=== PATIENT | female | born 1960 | race Caucasian/White ===

== ENCOUNTER 2019-10-19 02:56 | Inpatient (IN) | payer BC, OTHER ==
[2019-10-19 03:15] LABS: #Lymphocytes 1.2 thou/uL (1.20-3.40); #Monocytes 0.5 thou/uL (0.11-0.59); #Neutrophils 7.9 thou/uL (1.40-6.50); %Basophils 0.4 % (0.0-1.0); %Eosinophils 0.3 % (0.0-10.0); %Lymphocytes 12.3 % (21.0-51.0); %Monocytes 5.1 % (0.0-10.0); %Neutrophils 81.9 % (42.0-75.0); Hemoglobin 15.7 g/dL (12.0-16.0); Mean Corpuscular HGB CONC 35.2 g/dL (32.0-36.0); Mean Corpuscular Volume 93.9 fL (78.0-98.0); Mean Platelet Volume 8.4 fL (7.4-10.4); Platelet Count 275 thou/uL (130-400); RBC Distribution Width 11.2 % (11.5-14.5); Red Blood Cell (RBC) Count 4.76 mill/uL (4.20-5.40); White Blood Cell (WBC) Count 9.6 thou/uL (4.8-10.8)
[2019-10-19 03:25] LABS: INR-International Normal Ratio 0.9; Prothrombin Time 11.8 sec (12.0-14.7)
[2019-10-19 03:26] LABS: PTT 28.1 sec (22.9-36.1)
[2019-10-19 03:54] LABS: ALT (SGPT) 16 U/L (8-55); AST (SGOT) 28 U/L (5-34); Acetaminophen Less than 6.0 mcg/mL (10.0-30.0); Albumin 4.2 g/dL (3.4-4.8); Alcohol 17 mg/dL (Less than 10); Alkaline Phosphatase 106 U/L (40-110); Anion Gap 18 mmol/L (10-20); BUN (Urea Nitrogen) 10 mg/dL (9.8-20.1); Bilirubin, Total 0.4 mg/dL (0.2-1.2); CK (CPK) 123 U/L (29-168); Calc. Creatinine Clearance 0 mL/min (70-130); Calcium 9.3 mg/dL (7.8-10.44); Carbon Dioxide 20 mmol/L (23-31); Chloride 100 mmol/L (98-107); Estimated GFR-MDRD Greater than 90; Globulin 3.8 g/dL (2.4-3.5); Glucose 153 mg/dL (80-115); Potassium 3.9 mmol/L (3.5-5.1); Salicylate Less than 8.0 mg/dL (15.0-30.0); Sodium 134 mmol/L (136-145)
[2019-10-19] MEDS ORDERED: Ondansetron PF 4 MG/2 ML Vial IVP PRN (04:36)
[2019-10-19] MEDS ORDERED: Acetaminophen 325 MG TAB PO PRN (04:36)
[2019-10-19] MEDS ORDERED: Milk Of Magnesia 30 ML UDCUP PO PRN (04:36)
[2019-10-19] MEDS ORDERED: Docusate 100 MG CAP PO PRN (04:36)
[2019-10-19] MEDS ORDERED: Sodium Chloride 0.9% 1,000 ML IV SCH (04:45)
--- NOTE | 2019-10-19 06:40 | CON ---
DATE OF CONSULTATION: 10/19/2019 CHIEF COMPLAINT: Right-sided weakness and slurred speech. HISTORY OF PRESENT ILLNESS: Ms. Schmitz is a 59-year-old female, who states she was watching TV and had few beers when she fell asleep, then woke up on the floor. Says she was unable to move her right side. She crawled to her bedroom, got dressed, called her parents and then EMS. Brain CT was acquired in the emergency department indicating an acute intraparenchymal hemorrhage within the left thalamus. REVIEW OF SYSTEMS: CONSTITUTIONAL: Denies fever or chills. ENT: Denies change in hearing. Reports slight right vision changes. CARDIAC: Denies chest pain, shortness of breath, or diaphoresis. PULMONARY: Denies shortness of breath, cough, or hemoptysis. GI: Denies abdominal pain, nausea, vomiting, diarrhea, or change in stool formation and consistency. : Denies trouble with urination, frequency of urination, or bloody urine. SKIN: Denies skin rash, bruising, bleeding, or skin masses. MUSCULOSKELETAL: As per history of present illness. NEUROLOGICAL: As per history of present illness. PSYCHOLOGICAL: Denies anxiety, depression, or behavioral changes. MEDICATIONS: 1. Venlafaxine 150 mg. 2. Amlodipine 5 mg. 3. Metoprolol 25 mg. 4. Olmesartan/hydrochlorothiazide 40 mg/25 mg. ALLERGIES: LISINOPRIL. SURGICAL HISTORY: Not obtained. HOSPITALIZATION: Not obtained. FAMILY HISTORY: Father alive, diagnosed with none. Mother alive, diagnosed with TIA. SOCIAL HISTORY: Nonsmoker. Drinks 2 to 3 beers daily. Denies illicit drugs. PHYSICAL EXAMINATION: VITAL SIGNS: BP 124/64, pulse 88, temperature 97.5, and respiratory rate 18. HEENT: Pupils are equal. Extraocular movements are intact. NECK: Soft, supple. No masses are noted. Range of motion is intact and nonpainful. NEUROLOGICAL: Awake, alert, and oriented x3. Memory, attention, and fund of knowledge are normal. Cranial nerves are grossly intact. There is a slight right hemianopia and right facial palsy. Motor: Unable to hold right arm against gravity. Right leg, some effort against gravity. Sensory; mild sensory loss in the right leg with decreased feeling on the affected side. Mild aphasia. She is able to comprehend and make conversation without much difficulty. Slight dysarthria. Most words are understandable. LABORATORY DATA: White blood cells 9.6 and platelet count 275. Prothrombin time 11.8, INR 0.9, and PTT 28.1. Sodium 134. IMAGING DATA: Brain CT; acute intraparenchymal hemorrhage within the left thalamus. PLAN: Repeat CT tomorrow morning. If scan shows improvement or no change, we will transfer care to Medicine Service. Supportive care. No intracranial surgery at this time. We will have her follow up in 2 to 3 weeks in our clinic and repeat the scan prior to that visit. Job ID: [id number] MTDD
--- NOTE | 2019-10-19 06:57 | PDOC.EVN ---
Event Note - Event Note Event Note: [id number] Consult
--- NOTE | 2019-10-19 07:01 | PRG ---
DATE OF SERVICE: 10/19/2019 I personally interviewed and examined the patient, agreed with documentation of Real Stout PA-C, dated 10/19/2019. Briefly, Ximena Schmitz is a very pleasant 59-year-old woman, who went to bed last night feeling well. She woke on the floor this morning and had difficulty moving her right side. She came to the emergency department, where CT examination of the brain revealed a thalamic hemorrhage in the left hemisphere without significant mass effect and no extension into the ventricular system. She is admitted to the [facility] unit. Her blood pressure is 150/92 as I examined her. She is awake and alert. Some of her speech is confused, but she reorients quickly and has a reasonably straightforward conversation. Cranial nerves appear intact. She has decreased sensation on the right side of her body. She has some pronator drift on the right. Her CT shows the aforementioned findings. Size of the hemorrhage is small. It is unlikely Ms. Schmitz will warrant any neurosurgical intervention. We will keep her blood pressure less than 140. We will re-scan her at 4:00 p.m. about 12 hours after her first scan. If those two scans look the same, we will not scan any further until 2 to 3 weeks from now. If she remains neurologically stable until tomorrow morning, she will be transferred to the Internal Medicine team per protocol. She will likely do well with the rehab. Job ID: [id number]
--- NOTE | 2019-10-19 07:34 | CT ---
PRELIMINARY REPORT/[facility]/EMERGENCY AFTER HOURS PROCEDURE: Receipt of this report by the clinical staff was confirmed with Marilu Sykes MD by Rufina Hayden on Oct 19, 2019 03:21:00 CDT. Addendum electronically signed by Rufina Hayden on October 19, 2019 3:22:26 AM CDT EXAM: CT Head Without Intravenous Contrast. CLINICAL HISTORY: *LEVEL 1 STROKE ALERT* F59, LSN 2000, PATIENT WOKE UP ON FLOOR AROUND 0130 UNABLE TO MOVE, RIGHT SIDE D WEAKNESS. +ETOH. TECHNIQUE: Axial computed tomography images of the head/brain without intravenous contrast. COMPARISON: None provided. FINDINGS: BRAIN: There is acute intraparenchymal hemorrhage within the left thalamus measuring 1.7 x 1.5 x 2.3 cm. No significant mass-effect. No CT evidence for acute territorial infarct. No midline shift or extra-ax ial collection. VENTRICLES: No hydrocephalus. ORBITS: The orbits are unremarkable. SINUSES AND MASTOIDS: The paranasal sinuses and mastoid air cells are clear. SOFT TISSUES: No significant facial or scalp soft tissue swelling evident. No radiopaque foreign body is seen. BONES: No acute skull fracture. IMPRESSION: Acute intraparenchymal hemorrhage within the left thalamus. No significant mass-effect, midline shif t or herniation. Short interval follow-up is recommended for stability. ELECTRONICALLY SIGNED BY: Jose Wilkerson M.D. Oct 19, 2019 3:20:06 AM CDT FINAL REPORT EMERGENCY AFTER HOURS CT BRAIN WITHOUT CONTRAST: FINDINGS/IMPRESSION: I agree with the findings and impression given in the preliminary report per [facility] physici an. There is a parenchymal hemorrhage involving the left thalamus. POS: ALEXIA
--- NOTE | 2019-10-19 08:01 | RAD ---
EXAM: CHEST ONE VIEW HISTORY: Right-sided weakness. COMPARISON: 05/18/2011 FINDINGS: The cardiac silhouette and pulmonary vasculature are within normal limits. The lungs are clear. Degen erative changes are seen in the spine. No significant interval change from prior study. IMPRESSION: No acute cardiopulmonary process.
--- NOTE | 2019-10-19 08:28 | CON ---
DATE OF CONSULTATION: 10/19/2019 CHIEF COMPLAINT: Right-sided weakness. REQUESTING PHYSICIAN: Neurosurgery. REASON FOR CONSULTATION: Medical management. HISTORY OF PRESENT ILLNESS: Ms. Schmitz is a 59-year-old female with past medical history of hypertension, presented to the emergency room with right-sided weakness and slurred speech. A brain CT done in the emergency room showed an acute intraparenchymal hemorrhage within the left thalamus. The patient is on venlafaxine, amlodipine, metoprolol, and olmesartan/hydrochlorothiazide at home. The patient is being admitted to the intensive care unit for further management. PAST MEDICAL HISTORY: Hypertension. PAST SURGICAL HISTORY: Reviewed and not pertinent. ALLERGIES: LISINOPRIL. FAMILY HISTORY: Mother has a history of TIA. SOCIAL HISTORY: Nonsmoker. Drinks 2 beers a day. Denies illicit drug use. HOME MEDICATIONS: Please see home medication reconciliation form for updated medications. REVIEW OF SYSTEMS: Review of 14 systems negative except what is mentioned in History of Present Illness. PHYSICAL EXAMINATION: GENERAL: The patient is awake, alert, not in acute distress. VITAL SIGNS: Blood pressure 120/60, pulse is 88, respiratory rate is 18, and temperature is 97.5. HEAD AND NECK: Normocephalic. NECK: Supple. No JVD. CHEST: Fair bilateral air entry. HEART: S1, S2. Regular. ABDOMEN: Soft, nontender. Bowel sounds present. NEUROLOGIC: Awake, alert, and oriented x3. There is weakness in the right upper extremity and right lower extremity. Sensation was decreased on the right side, mild aphasia. LABORATORY DATA: The patient has WBC count of 9.6 and platelets 275. INR is 0.9. Sodium 134. Brain CT showed acute intraparenchymal hemorrhage within the left thalamus. ASSESSMENT: 1. Acute intracranial hemorrhage. 2. Hypertension. PLAN: 1. Admit to ICU. 2. Monitor blood pressure. 3. Reconcile home medications. 4. Surgical management as per neurosurgeon. 5. DVT prophylaxis as appropriate. Thank you for consulting us. We will follow the patient with you as needed. Job ID: [id number]
[2019-10-19] MEDS ORDERED: Potassium Chloride 20 MEQ TAB PO SCH (08:45)
--- NOTE | 2019-10-19 09:47 | RAD ---
XR Hip Rt 2-3 View HISTORY: Fall, right hip pain FINDINGS: No fracture or dislocation is identified.
--- NOTE | 2019-10-19 09:48 | RAD ---
XR Hip Lt 2-3 View HISTORY: Fall, left hip pain FINDINGS: No fracture or dislocation is identified.
--- NOTE | 2019-10-19 10:14 | ULT ---
Carotid duplex sonogram HISTORY: CVA. Vascular disease. FINDINGS: Right: Mild plaque. Color and spectral Doppler evaluation, peak systolic velocity of 52 cm/s, and IC to CC ratio 0.6 suggest no hemodynamically significant stenosis within the extracranial right ICA. Antegrade flow within the vertebral artery. Left: Minimal plaque. Color and spectral Doppler evaluation, peak systolic velocity of 63 cm/s, and I C to CC ratio of 0.8 suggest no hemodynamically significant stenosis within the extracranial left ICA. Antegrade flow within the vertebral artery. IMPRESSION : Mild atherosclerosis. No sonographic evidence of significant extracranial ICA stenosis.
[2019-10-19] MEDS: levETIRAcetam 500 MG TAB PO SCH ×2 (11:02→20:35)
[2019-10-19] MEDS: Amlodipine 5 MG TAB PO SCH (11:02)
--- NOTE | 2019-10-19 12:16 | MRI ---
MRI BRAIN NONCONTRAST: DATE: 10/19/2019 HISTORY: 59-year-old female with "right arm and leg numbness" COMPARISON: No prior brain MRI. CT of 10/19/2019 FINDINGS: There is an approximately 2 x 1.5 cm intra-axial hematoma in the left thalamus surrounded by a thin [place] of vasogenic edema. The edema extends into the left side of the midbrain. The surrounding vasogenic edema is hyperintense on DWI. The hematoma has moderate T1 shortening (mildly hyperintense relative to brain parenchyma on T1 WI) and mixed T2 prolongation and intermediate T2 (hyperintense and isointense relative to brain parenchyma on T2 WI). The signal characteristics are consistent with a mixture of intracellular and extracellular methemoglobin. Strong magnetic susceptibility artifact on gradient echo sequence. The hematoma causes mild local mass effect. It does not obstruct the third ventricle. The ventricles are normal in size and configuration. Elsewhere, there are mild chronic ischemic white matter changes of the cerebrum, and moderate to thelma re chronic ischemic white matter changes of the sharon. No midline shift or extra-axial fluid collection. IMPRESSION: 1) acute intra-axial hematoma of the left thalamus, with surrounding vasogenic edema that extends int o the left midbrain. 2) recommend follow-up MRI of brain with and without contrast in 1 to 3 months to evaluate for underl taylor neoplastic cause. 3) high-grade chronic ischemic white matter changes of the sharon..
[2019-10-19 14:04] LABS: SARS-CoV-2 MS2 Positive; SARS-CoV-2 N Gene Negative; SARS-CoV-2 S Gene Negative; SARS-CoV-2 by NAA Not Detected (NotDetected); SARS-CoV-2 orf1ab Negative
--- NOTE | 2019-10-19 14:25 | PDOC.HOSPP ---
- Subjective Encounter Date: 10/19/19 Encounter Time: 07:00 Subjective: The patient states her right side is still completely numb. She is able to move her right arm more but can't feel anything on her left leg. She states that when she went to bed she woke up and found herself on the floor, doesn't know how she got there. She wasn't able to move and managed to crawl herself to call the ambulance. She lives alone with her dog Patient was hysterically crying this morning because she had a magalie horse on her left leg and states it took few hours before she got any relief and was unable to get any help. - Objective Vital Signs & Weight: Vital Signs (12 hours) Temp Pulse Pulse Pulse BP BP BP 10/19/19 11:02 103 H 146/94 H 10/19/19 11:01 158/87 H 10/19/19 11:00 104 H 102 H 146/94 H 158/87 H 10/19/19 08:00 10/19/19 07:23 98.1 F 10/19/19 05:57 97.5 F L Pulse Ox Pulse Ox Pulse Ox 10/19/19 11:02 10/19/19 11:01 10/19/19 11:00 100 100 10/19/19 08:00 98 10/19/19 07:23 10/19/19 05:57 Weight Weight 209 lb 12.8 oz Most Recent Monitor Data Heart Rate from ECG 104 NIBP 158/87 NIBP BP-Mean 110 Respiration from ECG 17 SpO2 99 Result Diagrams: 10/19/19 03:06 10/19/19 03:06 Additional Labs: Accuchecks 10/19/19 03:09 POC Glucose 150 H Hospitalist ROS - Review of Systems Constitutional: denies: fever, chills - Medication Medications: Active Medications Generic Name Dose Route Start Last Admin Trade Name Freq PRN Reason Stop Dose Admin Acetaminophen 650 mg 10/19/19 04:36 10/19/19 11:02 Tylenol PO 650 mg Q6H PRN Administration Fever > 101 or Headache Amlodipine Besylate 2.5 mg 10/19/19 09:00 10/19/19 11:02 Norvasc PO 2.5 mg DAILY CHRISTIANO Administration Levetiracetam 500 mg 10/19/19 09:00 10/19/19 11:02 Keppra PO 500 mg BID CHRISTIANO Administration - Exam General Appearance: NAD, awake alert Eye: PERRL, anicteric sclera ENT: normocephalic atraumatic, no oropharyngeal lesions Neck: supple, symmetric, no JVD Heart: RRR, no murmur, no gallops, no rubs Respiratory: CTAB, no wheezes, no rales, no ronchi Gastrointestinal: soft, non-tender, non-distended, normal bowel sounds, no palpable masses Extremities: no cyanosis, no clubbing, no edema Skin: normal turgor, no lesions, no rashes Neurological: cranial nerve grossly intact, normal sensation to touch, no focal deficits, no new deficit Musculoskeletal: normal tone, normal strength, no muscle wasting Psychiatric: normal affect, normal behavior, A&O x 3, oriented to person Hosp A/P - Plan CT brain: acute intraparenchymal hemorrhage within left thalamus. MRI Brain: acute intra-axial hematoma of the left thalamus with surrounding vasogenic edema extending into the left midbrain. Follow up MRI brain with and without contrast in 1-3 months. High grade chronic ischemic white matter changes of the sharon Carotid ultrasound: mild atherosclerosis This is a 59 year old female with past medical history of hypertension and depression who presented with right sided numbness, found to have an acute left thalamus hemorrhage Acute left intraparenchymal hemorrhage - noted on CT head. Plan for repeat CT head this afternoon. MRI brain shows left thalamus hemorrhage with edema extending into left midbrain. Carotid shows no atherosclerosis - BP goal around 140, started amlodipine 2.5 mg daily, can increase to 5 mg - patient takes metoprolol and olemsartan/HCTZ at home as well - continue keppra for seizure prophylaxis - can transfer to stroke floor if CT scan stable Hyponatremia - sodium 134, mild, will monitor . I have resumed diet Cramps in legs - ordered magnesium which was 1.9. Will give one dose of 400 mg Depression - continue venlafaxine
[2019-10-19] MEDS ORDERED: Magnesium Oxide 400 MG TAB PO SCH (14:45)
--- NOTE | 2019-10-19 21:41 | CT ---
CT OF BRAIN PERFORMED WITHOUT CONTRAST ENHANCEMENT: 10/19/19 HISTORY: Follow-up of bleed. COMPARISON: Prior examination same day. The left thalamic hemorrhage is stable. No new process demonstrated. IMPRESSION: Stable left thalamic hemorrhage. POS: OFF
[2019-10-19] MEDS ORDERED: Dexamethasone Sod Phosphate 4 MG in Sodium Chloride 0.9% 50 ML IVPB SCH (23:30)
--- NOTE | 2019-10-20 07:19 | PRG ---
DATE OF SERVICE: 10/20/2019 I saw Ms. Schmitz in her room this morning. She has moved out of the intermediate care unit and to the Stroke Unit. For some reason, MRI was done yesterday of the brain. A followup CAT scan has been done this morning as well. I have compared all those images. Ms. Schmitz feels better than she did yesterday, but she is still telling me that sensation on the right side of her body is abnormal and makes her feel as though it is difficult to coordinate the motion on that side. Among the electronically recorded vital signs, the maximum temperature I see is 99.8 degrees Fahrenheit. Blood pressures have been in the 120s to 130s. Other vitals are stable. Ms. Schmitz is wide awake this morning. Her speech is perfectly fluent. She has some right-sided decreased sensation and a small pronator drift on that side. These are stable findings from yesterday. Imaging findings have been reviewed. We carefully compared all the images and there is no change in the size of the thalamic hemorrhage. The MRI scan does not show any acute infarct. There is nothing to suggest any increase in size or increased bleeding when compared to her admission imaging findings. Ms. Schmitz has been stable since her admission. Per our intracerebral hemorrhage protocol, the Internal Medicine Team will take over her primary today. We will arrange followup imaging of the brain in 3 weeks' time. I will call the patient with those results. In 2 to 3 months' time, we may consider an MRI scan as well. (15 minutes). Job ID: [id number] MTDD
[2019-10-20] MEDS: Amlodipine 5 MG TAB PO SCH (08:24)
[2019-10-20] MEDS: Venlafaxine HCl XR 150 MG CAP PO SCH (08:24)
[2019-10-20] MEDS: levETIRAcetam 500 MG TAB PO SCH ×2 (08:24→20:26)
--- NOTE | 2019-10-20 14:21 | PDOC.HOSPP ---
- Subjective Encounter Date: 10/20/19 Encounter Time: 11:30 Subjective: Patient is able to lift her right upper extremity and squeeze. Able to lift her right leg however strength is better in the upper extremity compared to lower extremity. She is still have sensory impairment on the right side. He has a Harkins. Able to work with the physical therapist. Blood pressure is high this morning however repeat blood pressure seems to be improved. She is on Keppra tolerating her regular diet. She had a 3 male so far. And no BM. She is aware that she is passing gas. - Objective Vital Signs & Weight: Vital Signs (12 hours) Temp Pulse Pulse Pulse Resp BP BP 10/20/19 11:13 98.3 F 87 15 10/20/19 10:11 100 101 H 178/93 H 131/81 10/20/19 08:24 97 10/20/19 08:20 10/20/19 07:29 97.8 F 97 18 10/20/19 03:15 98.3 F 84 18 BP Pulse Ox 10/20/19 11:13 135/75 95 10/20/19 10:11 10/20/19 08:24 10/20/19 08:20 97 10/20/19 07:29 136/82 97 10/20/19 03:15 131/67 93 L Weight Weight 208 lb 11.2 oz Most Recent Monitor Data Heart Rate from ECG 86 NIBP 108/59 NIBP BP-Mean 75 Respiration from ECG 15 SpO2 100 I&O: 10/19/19 10/20/19 10/21/19 06:59 06:59 06:59 Intake Total 200 Output Total 2800 Balance -2600 Result Diagrams: 10/19/19 03:06 10/19/19 03:06 Hospitalist ROS - Medication Medications: Active Medications Generic Name Dose Route Start Last Admin Trade Name Freq PRN Reason Stop Dose Admin Acetaminophen 650 mg 10/19/19 04:36 10/19/19 11:02 Tylenol PO 650 mg Q6H PRN Administration Fever > 101 or Headache Amlodipine Besylate 2.5 mg 10/19/19 09:00 10/20/19 08:24 Norvasc PO 2.5 mg DAILY CHRISTIANO Administration Levetiracetam 500 mg 10/19/19 09:00 10/20/19 08:24 Keppra PO 500 mg BID CHRISTIANO Administration Venlafaxine HCl 150 mg 10/20/19 09:00 10/20/19 08:24 Effexor Xr PO 150 mg DAILY CHRISTIANO Administration - Exam General Appearance: NAD, awake alert Eye: PERRL ENT: normocephalic atraumatic Neck: supple Heart: RRR Respiratory: CTAB, normal chest expansion Gastrointestinal: soft, normal bowel sounds Neurological - other findings: Right upper extremity 3 out of 5 in strength lower extremity 2 out of 5. 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 Plan for repeat CT head this afternoon. MRI brain shows left thalamus hemorrhage with edema extending into left midbrain. Carotid shows no atherosclerosis - BP goal around 140, started amlodipine 2.5 mg daily, can increase to 5 mg - patient takes metoprolol and olemsartan/HCTZ at home as well - continue keppra for seizure prophylaxis -May need to discontinue the Keppra in 2 to 3 weeks - They plan to see her in 3 months time may be if she needs earlier appointment. Hyponatremia -No BMP done today will get one and follow the sodium level. History of daily drinking beer -Place [facility] protocol Depression Anxiety - continue venlafaxine Constipation -Arrange scheduled stool softener Continue with physical therapy. Repeat CT head done yesterday on fourth showing left thalamic hemorrhage is stable without any new process
[2019-10-20] MEDS ORDERED: Lorazepam 1 MG TAB PO PRN (14:52)
[2019-10-20] MEDS: Labetalol HCl 100 MG/20 ML VIAL SLOW IVP PRN (16:03)
[2019-10-20] MEDS: Senokot S 8.6-50 MG TAB PO SCH (20:26)
[2019-10-21] MEDS: hydrALAZINE 20 MG/ML VIAL SLOW IVP PRN ×2 (00:20→20:43)
[2019-10-21] MEDS: Venlafaxine HCl XR 150 MG CAP PO SCH (10:14)
[2019-10-21] MEDS: Amlodipine 5 MG TAB PO SCH (10:14)
[2019-10-21] MEDS: Senokot S 8.6-50 MG TAB PO SCH ×2 (10:14→20:43)
[2019-10-21 10:41] LABS: Hemoglobin A1c 4.8 % (4.0-6.0)
[2019-10-21 10:56] LABS: Anion Gap 13 mmol/L (10-20); BUN (Urea Nitrogen) 11 mg/dL (9.8-20.1); Calc. Creatinine Clearance 152 mL/min (70-130); Calcium 8.7 mg/dL (7.8-10.44); Carbon Dioxide 25 mmol/L (23-31); Chloride 103 mmol/L (98-107); Estimated GFR-MDRD Greater than 90; Glucose 104 mg/dL (80-115); Potassium 3.4 mmol/L (3.5-5.1); Sodium 138 mmol/L (136-145)
--- NOTE | 2019-10-21 13:51 | PDOC.HOSPP ---
- Subjective Encounter Date: 10/21/19 Encounter Time: 10:40 Subjective: Patient is sitting in the chair she feels comfortable. She still has the Harkins. Her sensory impairment still exist. But she is able to move her right leg much better than yesterday. - Objective Vital Signs & Weight: Vital Signs (12 hours) Temp Pulse Resp BP BP Pulse Ox 10/21/19 11:59 162/84 H 10/21/19 11:25 98.7 F 78 22 H 162/84 H 96 10/21/19 10:14 89 163/89 H 10/21/19 09:45 95 10/21/19 08:00 98.1 F 89 17 126/89 95 10/21/19 07:11 126/89 10/21/19 04:00 97.5 F L 72 14 130/69 130/69 96 10/21/19 01:50 138/75 Weight Weight 212 lb 3.2 oz Most Recent Monitor Data Heart Rate from ECG 86 NIBP 108/59 NIBP BP-Mean 75 Respiration from ECG 15 SpO2 100 I&O: 10/20/19 10/21/19 10/22/19 06:59 06:59 06:59 Intake Total 200 2080 Output Total 2800 8830 1320 Balance -7587 -7961 -1320 Result Diagrams: 10/19/19 03:06 10/21/19 10:11 Hospitalist ROS - Medication Medications: Active Medications Generic Name Dose Route Start Last Admin Trade Name Freq PRN Reason Stop Dose Admin Acetaminophen 650 mg 10/19/19 04:36 10/19/19 11:02 Tylenol PO 650 mg Q6H PRN Administration Fever > 101 or Headache Amlodipine Besylate 2.5 mg 10/19/19 09:00 10/21/19 10:14 Norvasc PO 2.5 mg DAILY CHRISTIANO Administration Hydralazine HCl 5 mg 10/19/19 04:43 10/21/19 00:20 Apresoline SLOW IVP 5 mg Q4H PRN Administration SBP >140 Labetalol HCl 10 mg 10/19/19 04:36 10/20/19 16:03 Normodyne SLOW IVP 10 mg Q2H PRN Administration SBP > 140 Senna/Docusate Sodium 1 tab 10/20/19 21:00 10/21/19 10:14 Senokot S PO 1 tab BID CHRISTIANO Administration Venlafaxine HCl 150 mg 10/20/19 09:00 10/21/19 10:14 Effexor Xr PO 150 mg DAILY CHRISTIANO Administration - Exam General Appearance: NAD, awake alert Eye: PERRL ENT: normocephalic atraumatic Neck: supple Heart: RRR Respiratory: CTAB, normal chest expansion Gastrointestinal: soft, normal bowel sounds Neurological: cranial nerve grossly intact Neurological - other findings: Right leg strength improved. Sensory impairment on the right side remains Psychiatric: A&O x 3 Hosp A/P - Plan Acute left intraparenchymal hemorrhage - noted on CT head. Plan for repeat CT head this afternoon. MRI brain shows left thalamus hemorrhage with edema extending into left midbrain. Carotid shows no atherosclerosis - BP goal around 140, started amlodipine 2.5 mg daily, can increase to 5 mg - patient takes metoprolol and olemsartan/HCTZ at home as well - continue keppra for seizure prophylaxis -May need to discontinue the Keppra in 2 to 3 weeks - They plan to see her in 3 months time may be if she needs earlier appointment. Hyponatremia -No BMP done today will get one and follow the sodium level. History of daily drinking beer -Place [facility] protocol Depression Anxiety - continue venlafaxine Constipation -Arrange scheduled stool softener Continue with physical therapy. Repeat CT head done yesterday on fourth showing left thalamic hemorrhage is stable without any new process 6th Right octavio-anesthesia She still has ongoing sensory impairment on her right upper and lower extremities. Right hemiparesis -Both upper and lower extremity strength on the right side improved. Continue with ongoing physical therapy. Will discuss about home discharge with home health versus inpatient rehab.
[2019-10-21] MEDS: Labetalol HCl 100 MG/20 ML VIAL SLOW IVP PRN (22:57)
[2019-10-22] MEDS: hydrALAZINE 20 MG/ML VIAL SLOW IVP PRN ×3 (04:49→21:11)
[2019-10-22] MEDS: Senokot S 8.6-50 MG TAB PO SCH ×2 (08:26→20:18)
[2019-10-22] MEDS: Amlodipine 5 MG TAB PO SCH ×2 (08:26→08:27)
[2019-10-22] MEDS: Losartan/Hydrochlorothiazide 100 mg/25 mg Tablet PO SCH (08:27)
[2019-10-22] MEDS: Venlafaxine HCl XR 150 MG CAP PO SCH (08:27)
--- NOTE | 2019-10-22 10:39 | PDOC.HOSPP ---
- Subjective Encounter Date: 10/22/19 Encounter Time: 07:00 Subjective: Patient seen in follow-up for intracranial bleed. She reports right upper extremity numbness and weakness. She denies chest pain, shortness of breath, fevers or chills. - Objective Vital Signs & Weight: Vital Signs (12 hours) Temp Pulse Resp BP BP Pulse Ox 10/22/19 08:27 138/71 10/22/19 08:26 138/71 10/22/19 08:01 138/71 10/22/19 07:23 96 10/22/19 07:19 97.9 F 75 20 138/71 96 10/22/19 05:16 79 139/72 10/22/19 04:49 144/80 H 10/22/19 04:00 98.0 F 80 20 144/80 H 95 10/21/19 23:24 149/79 H 10/21/19 23:19 98.1 F 79 18 149/79 H 94 L 10/21/19 22:57 84 177/79 H Weight Weight 203 lb Most Recent Monitor Data Heart Rate from ECG 86 NIBP 108/59 NIBP BP-Mean 75 Respiration from ECG 15 SpO2 100 I&O: 10/21/19 10/22/19 10/23/19 06:59 06:59 06:59 Intake Total 2080 2125 300 Output Total 4550 1320 Balance -2470 805 300 Result Diagrams: 10/19/19 03:06 10/21/19 10:11 Additional Labs: I reviewed patient's labs and MAR EKG Reviewed by me: Yes (Telemetry-NSR) Hospitalist ROS - Review of Systems Gastrointestinal: denies: nausea, vomiting, abdominal pain, diarrhea, constipation, melena, hematochezia Neurological: reports: weakness, numbness. denies: incoordination, change in speech, confusion, seizures - Medication Medications: Active Medications Generic Name Dose Route Start Last Admin Trade Name Freq PRN Reason Stop Dose Admin Acetaminophen 650 mg 10/19/19 04:36 10/19/19 11:02 Tylenol PO 650 mg Q6H PRN Administration Fever > 101 or Headache Amlodipine Besylate 2.5 mg 10/19/19 09:00 10/22/19 08:26 Norvasc PO 2.5 mg DAILY CHRISTIANO Administration Amlodipine Besylate 5 mg 10/22/19 09:00 10/22/19 08:27 Norvasc PO 5 mg DAILY CH[facility]STIANO Administration HCTZ/Losartan Potassium 1 tab 10/22/19 09:00 10/22/19 08:27 Hyzaar 100/25 PO 1 tab DAILY [facility]STIANO Administration Hydralazine HCl 5 mg 10/19/19 04:43 10/22/19 04:49 Apresoline SLOW IVP 5 mg Q4H PRN Administration SBP >140 Labetalol HCl 10 mg 10/19/19 04:36 10/21/19 22:57 Normodyne SLOW IVP 10 mg Q2H PRN Administration SBP > 140 Metoprolol Succinate 25 mg 10/22/19 09:00 10/22/19 08:27 Toprol Xl PO 25 mg DAILY CH[facility]STIANO Administration Senna/Docusate Sodium 1 tab 10/20/19 21:00 10/22/19 08:26 Senokot S PO Not Given BID CHRISTIANO Sodium Chloride 10 ml 10/19/19 04:36 10/22/19 04:49 Flush - Normal Saline IVF 10 ml PRN PRN Administration Saline Flush Venlafaxine HCl 150 mg 10/20/19 09:00 10/22/19 08:27 Effexor Xr PO 150 mg DAILY CH[facility]STIANO Administration - Exam General - other findings: Obese Eye: anicteric sclera ENT: moist mucosa Neck: supple, symmetric Heart: RRR Respiratory: CTAB Gastrointestinal: soft, non-tender Extremities: no cyanosis Neurological - other findings: Right upper extremity weakness, diminished sensation Psychiatric: normal affect, normal behavior Hosp A/P - Plan Acute left intraparenchymal hemorrhage -Hypertension is controlled -Continue amlodipine, metoprolol and olemsartan/HCTZ -Patient is on Keppra for seizure prophylaxis Hypokalemia -Replace potassium Depression -Mild, stable -continue venlafaxine Hyponatremia -Resolved Disposition: To inpatient rehab. Patient has commercial insurance, needs preauthorization.
[2019-10-22] MEDS ORDERED: Potassium Chloride 20 MEQ TAB PO SCH (11:00)
--- NOTE | 2019-10-22 13:57 | CON ---
DATE OF CONSULTATION: 10/22/2019 REASON FOR CONSULTATION: Tachycardia. HISTORY OF PRESENT ILLNESS: Ms. Schmitz is a very pleasant 59-year-old white female, who comes to the hospital for right-sided weakness and slurred speech. She was at home watching TV, she thinks that she fell asleep and woke up on the floor and was unable to move her right side, eventually got to the phone and was able to call 911. She was brought in and CT was done that showed left thalamus intraparenchymal hemorrhage. No surgery was performed. MRI was done on same date and it showed some vasogenic edema around it with the same hematoma of left thalamus. She is doing better. She is slowly recuperating some of her movement. However, they have stood her up to walk and every time they stand her up, her heart rate goes from the 80s to 90s up to about 180 to 190, almost 200 at times, so Cardiology has been consulted for concern of this being SVT. On my evaluation, Ms. Schmitz denies any chest pain, tightness, pressure. No shortness of breath. She is taking her blood pressure medications at home and tells me that she has stopped checking her blood pressure at home about a year ago, but in the past it had been pretty good. She states that she has been a little more worried about some things at home lately, but nothing terrible. Currently, I am looking at her strips and when she stands up, it looks like she goes into sinus tach and gets better with rest. PAST MEDICAL HISTORY: 1. Hypertension. 2. Anxiety and depression. OUTPATIENT MEDICATIONS: 1. Venlafaxine 150 mg a day. 2. Amlodipine 5 mg a day. 3. Metoprolol 25 mg a day. 4. Olmesartan/hydrochlorothiazide 40/25 mg a day. ALLERGIES: LISINOPRIL GIVES HER COUGH. SURGICAL HISTORY: None. FAMILY HISTORY: Noncontributory. SOCIAL HISTORY: Drinks about 2 to 3 beers every day. No drug use. No tobacco use. REVIEW OF SYSTEMS: A 12-point review of systems was done and was found to be negative other than stated in the history of present illness. PHYSICAL EXAMINATION: VITAL SIGNS: Temperature 97.6, pulse 88, respiratory rate 20, saturating 96% on room air, blood pressure has been anywhere from GENERAL: Awake, alert, oriented x3. No distress. HEENT: Normocephalic and atraumatic. NECK: Supple. LUNGS: Clear. CARDIOVASCULAR: S1 and S2. No S3 or S4. No murmurs. ABDOMEN: Soft. Positive bowel sounds. EXTREMITIES: No edema. SKIN: Warm and dry. LABORATORY DATA: Laboratory work was reviewed. White count was unremarkable. Coags were normal. Chemistry was unremarkable except for a potassium of 3.4, triglyceride of 111, LDL of 108, HDL of 65. Toxicology, plasma alcohol was 17. Acetaminophen and salicylates were negative. COVID-19 serologies were negative. ASSESSMENT: 1. Sinus tachycardia. 2. Left thalamus bleed. PLAN: 1. We will up titrate beta elma to try to control blood pressure and heart rate a little bit better. 2. Looking at the strips, more likely this is sinus tachycardia. Hopefully, this will get better once the bleed starts to get better and edema starts to improve. 3. Continue telemetry monitoring for now. 4. Echocardiogram to be done. Thank you for letting us to participate in the care of your patient. We will follow. Job ID: [id number]
[2019-10-22] MEDS: Labetalol HCl 100 MG/20 ML VIAL SLOW IVP PRN ×2 (15:38→21:56)
[2019-10-23 08:11] LABS: #Basophils 0.1 thou/uL (0.0-0.2); #Eosinphils 0.2 thou/uL (0.0-0.7); #Lymphocytes 1.3 thou/uL (1.20-3.40); #Monocytes 0.5 thou/uL (0.11-0.59); #Neutrophils 5.5 thou/uL (1.40-6.50); %Basophils 0.7 % (0.0-1.0); %Eosinophils 2.4 % (0.0-10.0); %Lymphocytes 17.5 % (21.0-51.0); %Monocytes 6.6 % (0.0-10.0); %Neutrophils 72.9 % (42.0-75.0); Hemoglobin 14.8 g/dL (12.0-16.0); Mean Corpuscular HGB CONC 34.4 g/dL (32.0-36.0); Mean Corpuscular Hemoglobin 33.3 pg (27.0-31.0); Mean Corpuscular Volume 96.7 fL (78.0-98.0); Mean Platelet Volume 8.4 fL (7.4-10.4); Platelet Count 252 thou/uL (130-400); RBC Distribution Width 11.6 % (11.5-14.5); Red Blood Cell (RBC) Count 4.45 mill/uL (4.20-5.40); White Blood Cell (WBC) Count 7.6 thou/uL (4.8-10.8)
[2019-10-23 08:33] LABS: Anion Gap 16 mmol/L (10-20); BUN (Urea Nitrogen) 14 mg/dL (9.8-20.1); Calc. Creatinine Clearance 131 mL/min (70-130); Calcium 9.3 mg/dL (7.8-10.44); Carbon Dioxide 20 mmol/L (23-31); Chloride 103 mmol/L (98-107); Estimated GFR-MDRD Greater than 90; Glucose 109 mg/dL (80-115); Potassium 3.7 mmol/L (3.5-5.1); Sodium 135 mmol/L (136-145)
[2019-10-23] MEDS: Venlafaxine HCl XR 150 MG CAP PO SCH (08:38)
[2019-10-23] MEDS: Losartan/Hydrochlorothiazide 100 mg/25 mg Tablet PO SCH (08:38)
[2019-10-23] MEDS: Amlodipine 5 MG TAB PO SCH (08:39)
[2019-10-23] MEDS: Senokot S 8.6-50 MG TAB PO SCH ×2 (08:41→20:37)
--- NOTE | 2019-10-23 10:20 | PDOC.HOSPP ---
- Subjective Encounter Date: 10/23/19 Encounter Time: 07:00 Subjective: Patient was seen for follow-up regarding intracranial bleed. She reports that the numbness over her right upper extremity is improving. Weakness in the right upper extremity is improving as well. - Objective Vital Signs & Weight: Vital Signs (12 hours) Temp Pulse Resp BP BP Pulse Ox 10/23/19 08:45 131/69 10/23/19 07:30 97.5 F L 80 15 131/69 95 10/23/19 03:34 98 F 82 18 124/69 124/69 95 10/22/19 23:28 97.6 F 83 20 125/80 125/80 93 L Weight Weight 202 lb Most Recent Monitor Data Heart Rate from ECG 86 NIBP 108/59 NIBP BP-Mean 75 Respiration from ECG 15 SpO2 100 I&O: 10/22/19 10/23/19 10/24/19 06:59 06:59 06:59 Intake Total 2125 1100 Output Total 1320 Balance 805 1100 Result Diagrams: 10/23/19 07:37 10/23/19 07:37 Additional Labs: I reviewed patient's labs and MAR EKG Reviewed by me: Yes (Telemetry: NSR) Hospitalist ROS - Review of Systems Respiratory: denies: cough, dry, shortness of breath, hemoptysis, SOB with excertion, pleuritic pain, sputum, wheezing Neurological: reports: weakness, numbness. denies: incoordination, change in speech, confusion, seizures - Medication Medications: Active Medications Generic Name Dose Route Start Last Admin Trade Name Freq PRN Reason Stop Dose Admin Acetaminophen 650 mg 10/19/19 04:36 10/19/19 11:02 Tylenol PO 650 mg Q6H PRN Administration Fever > 101 or Headache Amlodipine Besylate 5 mg 10/22/19 09:00 10/23/19 08:39 Norvasc PO 5 mg DAILY CHRISTIANO Administration HCTZ/Losartan Potassium 1 tab 10/22/19 09:00 10/23/19 08:38 Hyzaar 100/25 PO 1 tab DAILY CH[facility]STIANO Administration Hydralazine HCl 5 mg 10/19/19 04:43 10/22/19 21:11 Apresoline SLOW IVP 5 mg Q4H PRN Administration SBP >140 Labetalol HCl 10 mg 10/19/19 04:36 10/22/19 21:56 Normodyne SLOW IVP 10 mg Q2H PRN Administration SBP > 140 Lorazepam 1 mg 10/20/19 14:52 10/22/19 11:32 Ativan PO 1 mg Q4H PRN Administration Anxiety Metoprolol Succinate 25 mg 10/22/19 21:00 10/23/19 08:38 Toprol Xl PO 25 mg BID CHRISTIANO Administration Senna/Docusate Sodium 1 tab 10/20/19 21:00 10/23/19 08:41 Senokot S PO Not Given BID CHRISTIANO Sodium Chloride 10 ml 10/19/19 04:36 10/22/19 04:49 Flush - Normal Saline IVF 10 ml PRN PRN Administration Saline Flush Venlafaxine HCl 150 mg 10/20/19 09:00 10/23/19 08:38 Effexor Xr PO 150 mg DAILY CHRISTIANO Administration - Exam General - other findings: Obese Eye: anicteric sclera ENT: moist mucosa Neck: supple, symmetric Heart: RRR Respiratory: CTAB Gastrointestinal: soft, non-tender Extremities: no edema Skin: no rashes Neurological - other findings: Right upper extremity weakness improving Psychiatric: normal affect, normal behavior Hosp A/P - Plan Acute left intraparenchymal hemorrhage -Hypertension is stable, currently controlled. -Patient is on amlodipine, metoprolol and olemsartan/HCTZ -Continue Keppra for seizure prophylaxis Depression -Mild, stable -continue venlafaxine Hyponatremia -Mild, likely asymptomatic Hypokalemia -Resolved Disposition: To inpatient rehab. Patient has commercial insurance, needs preauthorization.
--- NOTE | 2019-10-23 14:52 | PDOC.NEUPN ---
- Subjective Encounter Date: 10/23/19 Subjective: Patient doing well. Focal right sided deficits improving. - Objective Vital Signs & Weight: Vital Signs (12 hours) Temp Pulse Pulse Pulse Resp BP BP 10/23/19 13:24 144/79 H 10/23/19 11:49 98.3 F 80 16 10/23/19 09:20 77 80 131/65 10/23/19 08:45 131/69 10/23/19 07:30 97.5 F L 80 15 10/23/19 03:34 98 F 82 18 124/69 BP BP Pulse Ox 10/23/19 13:24 10/23/19 11:49 144/79 H 95 10/23/19 09:20 138/76 10/23/19 08:45 10/23/19 07:30 131/69 95 10/23/19 03:34 124/69 95 Weight Weight 202 lb Most Recent Monitor Data Heart Rate from ECG 86 NIBP 108/59 NIBP BP-Mean 75 Respiration from ECG 15 SpO2 100 I&O: 10/22/19 10/23/19 10/24/19 06:59 06:59 06:59 Intake Total 2125 1100 840 Output Total 1320 Balance 805 1100 840 Result Diagrams: 10/23/19 07:37 10/23/19 07:37 Radiology Reviewed by me: Yes EKG Reviewed by me: Yes ROS - Review of Systems Constitutional: denies: fever, chills, sweats, weakness, malaise, other Eyes: denies: pain, vision change, conjunctivae inflammation, eyelid inflammation, redness, other ENT: denies: ear pain, ear discharge, nose pain, nose discharge, nose congestion , mouth pain, mouth swelling, throat pain, throat swelling, other Respiratory: denies: cough, dry, shortness of breath, hemoptysis, SOB with excertion, pleuritic pain, sputum, wheezing, other Cardiovascular: denies: no pertinent history, AFIB, CAD, CHF, HTN, MD, Syncope, Hyperlipidemia, Mitral valve stenosis, Aortic stenosis, Valve insufficiency, Pulmonary hypertension, Other Gastrointestinal: denies: nausea, vomiting, abdominal pain, diarrhea, constipation, melena, hematochezia, other Genitourinary: denies: dysuria, frequency, incontinence, hematuria, retention, other Musculoskeletal: denies: neck pain, shoulder pain, arm pain, back pain, hand pain, leg pain, foot pain, other Neurological: reports: weakness, numbness, incoordination. denies: change in speech, confusion, seizures, other - Medication Medications: Active Medications Generic Name Dose Route Start Last Admin Trade Name Freq PRN Reason Stop Dose Admin Acetaminophen 650 mg 10/19/19 04:36 10/19/19 11:02 Tylenol PO 650 mg Q6H PRN Administration Fever > 101 or Headache Amlodipine Besylate 5 mg 10/22/19 09:00 10/23/19 08:39 Norvasc PO 5 mg DAILY CHRISTIANO Administration HCTZ/Losartan Potassium 1 tab 10/22/19 09:00 10/23/19 08:38 Hyzaar 100/25 PO 1 tab DAILY CHRISTIANO Administration Hydralazine HCl 5 mg 10/19/19 04:43 10/22/19 21:11 Apresoline SLOW IVP 5 mg Q4H PRN Administration SBP >140 Labetalol HCl 10 mg 10/19/19 04:36 10/22/19 21:56 Normodyne SLOW IVP 10 mg Q2H PRN Administration SBP > 140 Lorazepam 1 mg 10/20/19 14:52 10/22/19 11:32 Ativan PO 1 mg Q4H PRN Administration Anxiety Metoprolol Succinate 25 mg 10/22/19 21:00 10/23/19 08:38 Toprol Xl PO 25 mg BID CHRISTIANO Administration Senna/Docusate Sodium 1 tab 10/20/19 21:00 10/23/19 08:41 Senokot S PO Not Given BID CHRISTIANO Sodium Chloride 10 ml 10/19/19 04:36 10/22/19 04:49 Flush - Normal Saline IVF 10 ml PRN PRN Administration Saline Flush Venlafaxine HCl 150 mg 10/20/19 09:00 10/23/19 08:38 Effexor Xr PO 150 mg DAILY CHRISTIANO Administration - Exam General Appearance: awake alert Eye: PERRL ENT: normocephalic atraumatic Neck: supple Respiratory: CTAB Cardiovascular: RRR Gastrointestinal: soft Extremities: no cyanosis Skin: normal turgor Neurological: no new deficit Neurological - other findings: right sided weakness Musculoskeletal: normal tone PSYCH: normal affect, normal behavior, A&O x 3 Results - Labs Result Diagrams: 10/23/19 07:37 10/23/19 07:37 Lab results: WBC 7.6 thou/uL (4.8-10.8) 10/23/19 07:37 Hgb 14.8 g/dL (12.0-16.0) 10/23/19 07:37 Hct 43.1 % (36.0-47.0) 10/23/19 07:37 MCV 96.7 fL (78.0-98.0) 10/23/19 07:37 Plt Count 252 thou/uL (130-400) 10/23/19 07:37 Neutrophils % 72.9 % (42.0-75.0) 10/23/19 07:37 Sodium 135 mmol/L (136-145) L 10/23/19 07:37 Potassium 3.7 mmol/L (3.5-5.1) 10/23/19 07:37 Chloride 103 mmol/L (98-107) 10/23/19 07:37 Carbon Dioxide 20 mmol/L (23-31) L 10/23/19 07:37 BUN 14 mg/dL (9.8-20.1) 10/23/19 07:37 Creatinine 0.65 mg/dL (0.6-1.1) 10/23/19 07:37 Glucose 109 mg/dL (80-115) 10/23/19 07:37 Calcium 9.3 mg/dL (7.8-10.44) 10/23/19 07:37 Total Bilirubin 0.4 mg/dL (0.2-1.2) 10/19/19 03:06 AST 28 U/L (5-34) 10/19/19 03:06 ALT 16 U/L (8-55) 10/19/19 03:06 Alkaline Phosphatase 106 U/L (40-110) 10/19/19 03:06 Creatine Kinase 123 U/L (29-168) 10/19/19 03:06 Troponin I Less than 0.010 ng/mL (< 0.028) 10/19/19 03:06 Serum Total Protein 8.0 g/dL (6.0-8.3) 10/19/19 03:06 Albumin 4.2 g/dL (3.4-4.8) 10/19/19 03:06 - Radiology Interpretation MRI - head Status: image reviewed by me (Consistent with acute hemorrhage in the left basal ganglia and left midbrain.) PN A/P (1) ICH (intracerebral hemorrhage) Code(s): I61.9 - NONTRAUMATIC INTRACEREBRAL HEMORRHAGE, UNSPECIFIED Status: Acute (2) Depression Code(s): F32.9 - MAJOR DEPRESSIVE DISORDER, SINGLE EPISODE, UNSPECIFIED Status : Acute - Plan Daily Plan: PT/OT, speech therapy, DVT proph w/SCDs 59 year old with ICH. Clinically improving. EEG reviewed and was negative for seizure activity. Continue Keppra for seizure prophylaxis. Neurochecks every 4 hours. Strict control of BP. Continue home medications. Continue medical management per primary team. PT/OT/Speech. Awaiting rehab. CM on board with discharge planning. Plan discussed with the patient, and with the floor team during MDR rounds.
--- NOTE | 2019-10-23 17:16 | PDOC.CPN ---
- Subjective Date: 10/23/19 Time: 17:14 Interval history: No new issues. Woriking with PT> Still sinus tach when up and about but less prominent. - Review of Systems General: denies: fever/chills, weight/appetite/sleep changes, night sweats, fatigue Respiratory: denies: cough, congestion, shortness of breath, exercise intolerance Cardiovascular: denies: chest pain, palpitation, edema, paroxysmal nocturnal dyspnea, orthopnea Gastrointestinal: denies: nausea, vomiting, diarrhea, constipation, abd pain, GI bleeding Musculoskeletal: denies: pain, tenderness, stiffness, swelling, arthritis/ arthralgias Neurological: reports: weakness - Objective Allergies/Adverse Reactions: Allergies Allergy/AdvReac Type Severity Reaction Status Date / Time lisinopril Allergy Verified 10/19/19 11:27 Visit Medications: Current Medications Acetaminophen (Tylenol) 650 mg PO Q6H PRN PRN Reason: Fever > 101 or Headache Last Admin: 10/19/19 11:02 Dose: 650 mg Amlodipine Besylate (Norvasc) 5 mg PO DAILY [facility] Last Admin: 10/23/19 08:39 Dose: 5 mg Docusate Sodium (Colace) 100 mg PO BIDPRN PRN PRN Reason: Constipation HCTZ/Losartan Potassium (Hyzaar 100/25) 1 tab PO DAILY [facility] Last Admin: 10/23/19 08:38 Dose: 1 tab Hydralazine HCl (Apresoline) 5 mg SLOW IVP Q4H PRN PRN Reason: SBP >140 Last Admin: 10/22/19 21:11 Dose: 5 mg Labetalol HCl (Normodyne) 10 mg SLOW IVP Q2H PRN PRN Reason: SBP > 140 Last Admin: 10/22/19 21:56 Dose: 10 mg Lorazepam (Ativan) 1 mg PO Q4H PRN PRN Reason: Anxiety Last Admin: 10/22/19 11:32 Dose: 1 mg Magnesium Hydroxide (Milk Of Magnesium) 30 ml PO BIDPRN PRN PRN Reason: Constipation Metoprolol Succinate (Toprol Xl) 50 mg PO BID [facility] Ondansetron HCl (Zofran) 4 mg IVP BIDPRN PRN PRN Reason: Nausea/Vomiting Senna/Docusate Sodium (Senokot S) 1 tab PO BID [facility] Last Admin: 10/23/19 08:41 Dose: Not Given Sodium Chloride (Flush - Normal Saline) 10 ml IVF PRN PRN PRN Reason: Saline Flush Last Admin: 10/22/19 04:49 Dose: 10 ml Venlafaxine HCl (Effexor Xr) 150 mg PO DAILY CHRISTIANO Last Admin: 10/23/19 08:38 Dose: 150 mg Vital Signs & Weight: Vital Signs Temp Pulse Pulse Pulse Pulse Resp BP 10/23/19 15:48 97.4 F L 84 20 10/23/19 15:27 81 10/23/19 13:24 144/79 H 10/23/19 11:49 98.3 F 80 16 10/23/19 09:20 77 80 10/23/19 08:45 131/69 10/23/19 07:30 97.5 F L 80 15 BP BP BP BP Pulse Ox 10/23/19 15:48 154/85 H 97 10/23/19 15:27 154/85 H 10/23/19 13:24 10/23/19 11:49 144/79 H 95 10/23/19 09:20 131/65 138/76 10/23/19 08:45 10/23/19 07:30 131/69 95 Weight 202 lb - Physical Exam General: no apparent distress HEENT: mucus membranes moist Neck: supple neck Cardiac: regular rate and rhythm Lungs: normal breath sounds Neuro: weakness Abdomen: active bowel sounds Extremities: no edema Skin: clear Musculoskeletal: no pain - Labs Result Diagrams: 10/23/19 07:37 10/23/19 07:37 Troponin/CKMB Troponin I Less than 0.010 ng/mL (< 0.028) 10/19/19 03:06 - Telemetry Sinus rhythms and dysrhythmias: sinus tachycardia - Assessment/Plan Assessment/Plan: 1. Sinus tachycardia 2. Intraparenchymal bleed 3. HTN PLAN: - Will increase BB for both BP and HR control. - Placement. - CV stable otherwise, normal LV function.
[2019-10-23] MEDS: Labetalol HCl 100 MG/20 ML VIAL SLOW IVP PRN (17:48)
[2019-10-24 04:54] LABS: #Basophils 0.1 thou/uL (0.0-0.2); #Eosinphils 0.3 thou/uL (0.0-0.7); #Lymphocytes 1.5 thou/uL (1.20-3.40); #Monocytes 0.7 thou/uL (0.11-0.59); #Neutrophils 5.4 thou/uL (1.40-6.50); %Basophils 0.9 % (0.0-1.0); %Eosinophils 3.5 % (0.0-10.0); %Lymphocytes 18.4 % (21.0-51.0); %Monocytes 8.4 % (0.0-10.0); %Neutrophils 68.8 % (42.0-75.0); Hemoglobin 14.4 g/dL (12.0-16.0); Mean Corpuscular HGB CONC 33.4 g/dL (32.0-36.0); Mean Corpuscular Hemoglobin 32.6 pg (27.0-31.0); Mean Corpuscular Volume 97.5 fL (78.0-98.0); Mean Platelet Volume 8.4 fL (7.4-10.4); Platelet Count 257 thou/uL (130-400); RBC Distribution Width 11.5 % (11.5-14.5); Red Blood Cell (RBC) Count 4.41 mill/uL (4.20-5.40); White Blood Cell (WBC) Count 7.9 thou/uL (4.8-10.8)
[2019-10-24 05:15] LABS: Anion Gap 14 mmol/L (10-20); BUN (Urea Nitrogen) 17 mg/dL (9.8-20.1); Calc. Creatinine Clearance 124 mL/min (70-130); Calcium 9.3 mg/dL (7.8-10.44); Carbon Dioxide 22 mmol/L (23-31); Chloride 102 mmol/L (98-107); Estimated GFR-MDRD 86; Glucose 109 mg/dL (80-115); Potassium 3.6 mmol/L (3.5-5.1); Sodium 134 mmol/L (136-145)
[2019-10-24 05:25] VITALS: BMI 33.7
[2019-10-24] MEDS: Venlafaxine HCl XR 150 MG CAP PO SCH (08:21)
[2019-10-24] MEDS: Senokot S 8.6-50 MG TAB PO SCH (08:21)
[2019-10-24] MEDS: Amlodipine 5 MG TAB PO SCH (08:30)
[2019-10-24] MEDS: Losartan/Hydrochlorothiazide 100 mg/25 mg Tablet PO SCH (08:31)
--- NOTE | 2019-10-24 08:38 | EEG ---
DATE OF SERVICE: 10/23/2019 ATTENDING PHYSICIAN: Suzette Bowman MD. The EEG was performed using 24-channel ID [employer] video digital EEG machine with 24- disk electrodes. This was an extended 2 hours 6 minutes of inpatient video EEG recording. Digital analysis of the EEG was done for spike and seizure detection , which revealed no abnormalities. BACKGROUND: The posterior background rhythm is 8.5 to 9 Hz. The background rhythm attenuates with eye opening and enhances with eye closure. HYPERVENTILATION: Not performed. PHOTIC STIMULATION: Bioccipital symmetric driving responses observed. SLEEP: Drowsiness is observed. EEG DIAGNOSIS: Normal awake and drowsy EEG. Job ID: [id number] [facility]
[2019-10-24 11:32] VITALS: BP 131/82; TEMP 98.3
--- NOTE | 2019-10-24 12:54 | PDOC.NEUPN ---
- Subjective Encounter Date: 10/24/19 Subjective: Patient doing well. No complaints overnight. - Objective Vital Signs & Weight: Vital Signs (12 hours) Temp Pulse Pulse Pulse Resp BP BP 10/24/19 12:20 131/82 10/24/19 11:07 98.3 F 80 18 10/24/19 09:28 79 77 179/90 H 10/24/19 08:30 97 109/41 L 10/24/19 08:20 109/41 L 10/24/19 07:19 97.8 F 71 16 10/24/19 03:48 97.9 F 74 14 BP BP Pulse Ox 10/24/19 12:20 10/24/19 11:07 131/82 95 10/24/19 09:28 136/90 10/24/19 08:30 10/24/19 08:20 94 L 10/24/19 07:19 117/75 94 L 10/24/19 03:48 112/62 94 L Weight Weight 202 lb 6.4 oz Most Recent Monitor Data Heart Rate from ECG 86 NIBP 108/59 NIBP BP-Mean 75 Respiration from ECG 15 SpO2 100 I&O: 10/23/19 10/24/19 10/25/19 06:59 06:59 06:59 Intake Total 1100 1316 Balance 1100 1316 Result Diagrams: 10/24/19 04:43 10/24/19 04:43 Radiology Reviewed by me: Yes EKG Reviewed by me: Yes ROS - Review of Systems Constitutional: denies: fever, chills, sweats, weakness, malaise, other Eyes: denies: pain, vision change, conjunctivae inflammation, eyelid inflammation, redness, other ENT: denies: ear pain, ear discharge, nose pain, nose discharge, nose congestion , mouth pain, mouth swelling, throat pain, throat swelling, other Respiratory: denies: cough, dry, shortness of breath, hemoptysis, SOB with excertion, pleuritic pain, sputum, wheezing, other Cardiovascular: denies: no pertinent history, AFIB, CAD, CHF, HTN, MN, Syncope, Hyperlipidemia, Mitral valve stenosis, Aortic stenosis, Valve insufficiency, Pulmonary hypertension, Other Gastrointestinal: denies: nausea, vomiting, abdominal pain, diarrhea, constipation, melena, hematochezia, other Genitourinary: denies: dysuria, frequency, incontinence, hematuria, retention, other Musculoskeletal: denies: neck pain, shoulder pain, arm pain, back pain, hand pain, leg pain, foot pain, other Neurological: reports: weakness, numbness - Medication Medications: Active Medications Generic Name Dose Route Start Last Admin Trade Name Freq PRN Reason Stop Dose Admin Acetaminophen 650 mg 10/19/19 04:36 10/19/19 11:02 Tylenol PO 650 mg Q6H PRN Administration Fever > 101 or Headache Amlodipine Besylate 5 mg 10/22/19 09:00 10/24/19 08:30 Norvasc PO Not Given DAILY [facility] HCTZ/Losartan Potassium 1 tab 10/22/19 09:00 10/24/19 08:31 Hyzaar 100/25 PO Not Given DAILY [facility] Hydralazine HCl 5 mg 10/19/19 04:43 10/22/19 21:11 Apresoline SLOW IVP 5 mg Q4H PRN Administration SBP >140 Labetalol HCl 10 mg 10/19/19 04:36 10/23/19 17:48 Normodyne SLOW IVP 10 mg Q2H PRN Administration SBP > 140 Lorazepam 1 mg 10/20/19 14:52 10/22/19 11:32 Ativan PO 1 mg Q4H PRN Administration Anxiety Metoprolol Succinate 50 mg 10/23/19 21:00 10/24/19 08:30 Toprol Xl PO 50 mg BID CHRISTIANO Administration Senna/Docusate Sodium 1 tab 10/20/19 21:00 10/24/19 08:21 Senokot S PO Not Given BID CHRISTIANO Sodium Chloride 10 ml 10/19/19 04:36 10/23/19 20:37 Flush - Normal Saline IVF 10 ml PRN PRN Administration Saline Flush Venlafaxine HCl 150 mg 10/20/19 09:00 10/24/19 08:21 Effexor Xr PO 150 mg DAILY CHRISTIANO Administration - Exam General Appearance: awake alert Eye: PERRL ENT: normocephalic atraumatic Neck: supple Respiratory: CTAB Cardiovascular: RRR Gastrointestinal: soft Extremities: no cyanosis Skin: normal turgor Neurological: no new deficit Musculoskeletal: normal tone, no muscle wasting PSYCH: normal affect, normal behavior, A&O x 3 Results - Labs Result Diagrams: 10/24/19 04:43 10/24/19 04:43 Lab results: WBC 7.9 thou/uL (4.8-10.8) 10/24/19 04:43 Hgb 14.4 g/dL (12.0-16.0) 10/24/19 04:43 Hct 43.0 % (36.0-47.0) 10/24/19 04:43 MCV 97.5 fL (78.0-98.0) 10/24/19 04:43 Plt Count 257 thou/uL (130-400) 10/24/19 04:43 Neutrophils % 68.8 % (42.0-75.0) 10/24/19 04:43 Sodium 134 mmol/L (136-145) L 10/24/19 04:43 Potassium 3.6 mmol/L (3.5-5.1) 10/24/19 04:43 Chloride 102 mmol/L (98-107) 10/24/19 04:43 Carbon Dioxide 22 mmol/L (23-31) L 10/24/19 04:43 BUN 17 mg/dL (9.8-20.1) 10/24/19 04:43 Creatinine 0.69 mg/dL (0.6-1.1) 10/24/19 04:43 Glucose 109 mg/dL (80-115) 10/24/19 04:43 Calcium 9.3 mg/dL (7.8-10.44) 10/24/19 04:43 Total Bilirubin 0.4 mg/dL (0.2-1.2) 10/19/19 03:06 AST 28 U/L (5-34) 10/19/19 03:06 ALT 16 U/L (8-55) 10/19/19 03:06 Alkaline Phosphatase 106 U/L (40-110) 10/19/19 03:06 Creatine Kinase 123 U/L (29-168) 10/19/19 03:06 Troponin I Less than 0.010 ng/mL (< 0.028) 10/19/19 03:06 Serum Total Protein 8.0 g/dL (6.0-8.3) 10/19/19 03:06 Albumin 4.2 g/dL (3.4-4.8) 10/19/19 03:06 PN A/P (1) ICH (intracerebral hemorrhage) Code(s): I61.9 - NONTRAUMATIC INTRACEREBRAL HEMORRHAGE, UNSPECIFIED Status: Acute (2) Depression Code(s): F32.9 - MAJOR DEPRESSIVE DISORDER, SINGLE EPISODE, UNSPECIFIED Status : Acute - Plan Daily Plan: PT/OT, speech therapy, DVT proph w/SCDs Consults: Other (Rehab) 59 year old with ICH. Clinically improving. Will be discharged to rehab today. EEG reviewed and was negative for seizure activity. We can discontue Keppra Neurochecks every 4 hours. Strict control of BP. Continue home medications. Continue medical management per primary team. PT/OT/Speech. Plan discussed with the patient, and with the floor team during MDR rounds.
--- NOTE | 2019-10-25 01:08 | DIS ---
DATE OF ADMISSION: 10/19/2019 DATE OF DISCHARGE: 10/24/2019 PRIMARY CARE PROVIDER: Dr. Charles Kuo. DISCHARGE DIAGNOSES: 1. Intracranial bleed. 2. Sinus tachycardia. 3. Hyponatremia. 4. Hypokalemia. CONDITION OF PATIENT ON THE DAY OF DISCHARGE: Stable. I assessed Ms. Schmitz on the day of discharge. She denies any chest pain or shortness of breath. Vital signs are stable. S1 and S2 are heard, regular. Lungs are clear to auscultation bilaterally. CONSULTATIONS DURING THIS HOSPITALIZATION: The patient was initially admitted under Neurosurgery Service. Consultations included Hospitalist Service and Neurology, Dr. Bowman and Cardiology, Dr. Suarez. HOSPITAL COURSE: Ms. Schmitz is a pleasant 59-year-old lady, who was admitted to [facility] on October 19, 2019, for intracranial bleed. CT scan, noncontrast, of the brain showed acute intraparenchymal hemorrhage within the left thalamus measuring 1.7 x 1.5 x 2.3 cm, no significant mass effect. MRI of the brain on October 18 showed acute intra-axial hematoma of the left thalamus, with surrounding vasogenic edema that extends into the left midbrain. Radiologist recommended followup MRI of the brain with and without contrast in 1-3 months to evaluate for underlying neoplastic cause. She had high-grade chronic ischemic white matter changes of the sharon. She also had repeat noncontrast CT scan of the brain, which showed stable left thalamic hemorrhage on October 19, 2019. Carotid Dopplers were also done and did not show any sonographic evidence of significant extracranial ICA stenosis. She was evaluated by Therapy Services. She was also seen by Neurology Service. She was initially started on Keppra, but EEG did not show any seizures, Keppra was discontinued. She was also seen by Cardiology Service for sinus tachycardia. 2D echocardiogram showed left ventricular ejection fraction of 60% to 65%, grade 1/3 diastolic dysfunction, sigmoid-shaped septum without hemodynamically significant LVOT obstruction, trace mitral regurgitation, mild tricuspid regurgitation, and mild pulmonic regurgitation. Her beta elma dose was increased. Heart rate improved. She has been accepted at [facility] and is being discharged there for further management. DISCHARGE MEDICATIONS: 1. Olmesartan/hydrochlorothiazide 40/25 mg daily. 2. Venlafaxine ER 150 mg daily. 3. Toprol-XL 50 mg 2 times a day. Many thanks for allowing me to participate in your patient's care. Please feel free to contact me with any questions or concerns. DISCHARGE DESTINATION: [facility]. POST ACUTE CARE FOLLOWUP: With primary care provider in 3 days and with Neurosurgery, Dr. Houston in 2 to 3 weeks. ACTIVITY: As tolerated. DIET: Heart healthy. Please note that fasting lipid profile during this hospitalization showed triglycerides 111, cholesterol 195, LDL cholesterol 108, and HDL cholesterol 65. On the day of discharge, she has sodium 134, potassium 3.6, and creatinine 0.69. Hemoglobin is 14.4, white count 7900, and platelet count 257,000. Neurosurgery Service will arrange followup imaging of the brain in 3 weeks' time and will call the patient with those results. They may consider an MRI scan in 2-3 months' time. DISCHARGE DESTINATION: Inpatient Rehab. TIME SPENT: Total amount of time spent coordinating this discharge: 31 minutes. Job ID: [id number]
== END 2019-10-24 14:09 | DRG 64 ==
LOC: ERS 02:56 → IMCU/EMU 03:48 → 2SE 10-20 00:22
PROVIDERS: ADMIT Neurological Surgery; ATTEND Neurological Surgery
DX: I61.8 Other nontraumatic intracerebral hemorrhage (principal); G93.6 Cerebral edema; E87.1 Hypo-osmolality and hyponatremia; G81.91 Hemiplegia, unspecified affecting right dominant side; R47.01 Aphasia; Z20.828 Contact with and (suspected) exposure to other viral communicable diseases; E87.6 Hypokalemia; F32.9 Major depressive disorder, single episode, unspecified; R29.706 NIHSS score 6; I10 Essential (primary) hypertension; F41.9 Anxiety disorder, unspecified; R00.0 Tachycardia, unspecified; E66.9 Obesity, unspecified; K59.00 Constipation, unspecified; Z79.899 Other long term (current) drug therapy; Z68.33 Body mass index [BMI] 33.0-33.9, adult
CPT/HCPCS: 36415; 36416; 70450; 70551; 71045; 80048; 80053; 80061; 80307; 82550; 83036; 83735; 84443; 84484; 85025; 85610; 85730; 87635; 93005; 93306; 93880; 95712; 95816; 95819; 95957; J0360; U0003

== ENCOUNTER 2019-11-30 09:36 | Outpatient (CLI) | payer BC ==
--- NOTE | 2019-11-30 10:17 | CT ---
CT BRAIN NONCONTRAST: DATE: 11/30/2019 HISTORY: Intracerebral hemorrhage I 61.9. Follow-up COMPARISON: 10/19/2019 FINDINGS: There is no evidence of acute intra-axial or extra-axial hemorrhage. There is no midline shift or any other mass effect. There is no extra-axial fluid collection. There is no evidence of obstructive hydrocephalus. Calvarium is intact. The dense left thalamic intra-axial acute hematoma demonstrated p reviously, has resolved. In its place, there is a small, faint 1 x 0.5 cm region of moderately low attenuation consistent with mild residual edema positioning into gliosis. IMPRESSION: 1. No acute intracranial findings. 2. Interval resolution of the left thalamic intra-axial hematoma. 3. Small region of residual edema transitioning into early gliosis in the left thalamus.
== END 2019-11-30 09:37 | disposition home or self-care (01) ==
LOC: TBSIIMAG 09:36
PROVIDERS: ATTEND Neurological Surgery
DX: I61.9 Nontraumatic intracerebral hemorrhage, unspecified (principal)
CPT/HCPCS: 70450